=== PATIENT | male | born 1970 | race African-American/Black ===

== ENCOUNTER 2017-10-09 19:47 | Emergency (ER) | payer OTHER ==
[~2017-10-09] VITALS: Ht 180.3 cm; Wt 115.8 kg
[2017-10-09 19:50] VITALS: BP 141/113
[2017-10-09] MEDS ORDERED: NACL 0.9% 1,000 ML IV SCH (21:21)
[2017-10-09] MEDS ORDERED: MORPHINE SULFATE 4 MG/ML SYR IVP ONE (21:25)
[2017-10-09] MEDS ORDERED: ONDANSETRON 4 MG/2 ML VIAL IVP ONE (21:25)
[2017-10-09 21:46] LABS: BASOPHILS # (AUTO) 0.1 K/uL (0.00-0.22); BASOPHILS % (AUTO) 0.7 % (0.0-2.0); EOSINOPHILS # (AUTO) 0.3 K/uL (0-0.4); EOSINOPHILS % (AUTO) 3.1 % (0.0-4.0); HEMATOCRIT 43.4 % (36-52); HEMOGLOBIN 14.3 g/dL (12.0-18.0); LYMPHOCYTES # (AUTO) 2.1 K/uL (2.0-11.5); LYMPHOCYTES % (AUTO) 21.7 % (20.5-51.1); MEAN CORPUSCULAR HEMOGLOBIN 27 pg (27-31); MEAN CORPUSCULAR HGB CONC 33 g/dL (33-37); MEAN CORPUSCULAR VOLUME 80.6 fL (80-94); MONOCYTES # (AUTO) 0.7 K/uL (0.8-1.0); MONOCYTES % (AUTO) 6.9 % (1.7-9.3); NEUTROPHILS # (AUTO) 6.4 K/uL (1.8-7.7); NEUTROPHILS % (AUTO) 67.6 % (42.2-75.2); PLATELET COUNT (AUTO) 322 K/uL (140-450); RED BLOOD CELL COUNT(AUTO) 5.38 MIL/uL (4.20-6.10); RED CELL DISTRIBUTION WIDTH 15.3 % (11.6-13.7); WHITE BLOOD COUNT (AUTO) 9.5 K/uL (4.8-10.8)
[2017-10-09 21:51] LABS: APPEARANCE,URINE CLEAR (CLEAR); BILIRUBIN,URINE NEGATIVE (NEGATIVE); BLOOD, URINE 3+ (NEGATIVE); COLOR,URINE YELLOW (YELLOW); LEUKOCYTE ESTERASE ,URINE NEGATIVE (NEGATIVE); NITRITE, URINE NEGATIVE (NEGATIVE); UGLUCOSE NEGATIVE (NEGATIVE)
[2017-10-09 22:03] LABS: ALBUMIN 3.3 g/dL (3.4-5.0); ANION GAP 10.5 (8-16); CARBON DIOXIDE 28.3 mmol/L (21-32); CREATININE 1.1 mg/dL (0.7-1.3); POTASSIUM 3.8 mmol/L (3.5-5.1); TOTAL BILIRUBIN 0.3 mg/dL (0.0-1.0)
[2017-10-09 22:37] LABS: RBC,URINE 11-20 (MOD) /HPF (0-5); WBC,URINE 80-100 /HPF (0-5)
[2017-10-09] MEDS ORDERED: cefTRIAXone 1,000 MG VIAL ONE (23:03)
[2017-10-10 00:43] VITALS: BP 133/86
== END 2017-10-10 00:43 | disposition home or self-care (01) ==
LOC: MED 19:47
DX: R10.9 Unspecified abdominal pain (principal); I10 Essential (primary) hypertension
CPT/HCPCS: 36415; 71260; 74177; 80053; 81001; 83690; 85025; 87086; 96361; 96365; 96375; 99285; J0696; J2270; J2405; J7030

== ENCOUNTER 2017-10-14 12:03 | Emergency (ER) | payer OTHER ==
[~2017-10-14] VITALS: Ht 180.3 cm; Wt 111.1 kg
[2017-10-14 12:25] VITALS: BP 130/56
--- NOTE | 2017-10-14 12:43 | NUR ---
PT AMBULATED TO BED 2
--- NOTE | 2017-10-14 13:00 | NUR ---
47m bib self with c/o 10/10 constant sharp left flank x 2 weeks with n/v and constipation. Patient denies any urinary complaints or fevers. Tenderness to left flank area. Patient is anxious and restlessness. Pt is aox4 with steady gait. RR are even and unlabored. Patient changed into gown. VSS. All needs met at this time. Will continue to monitor.
[2017-10-14 14:02] LABS: BASOPHILS % (AUTO) 0.5 % (0.0-2.0); EOSINOPHILS # (AUTO) 0.2 K/uL (0-0.4); EOSINOPHILS % (AUTO) 2.2 % (0.0-4.0); HEMATOCRIT 44.6 % (36-52); HEMOGLOBIN 15.1 g/dL (12.0-18.0); LYMPHOCYTES % (AUTO) 25.5 % (20.5-51.1); MEAN CORPUSCULAR HEMOGLOBIN 27 pg (27-31); MEAN CORPUSCULAR HGB CONC 34 g/dL (33-37); MEAN CORPUSCULAR VOLUME 79.5 fL (80-94); MONOCYTES # (AUTO) 0.4 K/uL (0.8-1.0); MONOCYTES % (AUTO) 5.4 % (1.7-9.3); NEUTROPHILS # (AUTO) 5.1 K/uL (1.8-7.7); NEUTROPHILS % (AUTO) 66.4 % (42.2-75.2); PLATELET COUNT (AUTO) 329 K/uL (140-450); RED BLOOD CELL COUNT(AUTO) 5.61 MIL/uL (4.20-6.10); RED CELL DISTRIBUTION WIDTH 15.4 % (11.6-13.7); WHITE BLOOD COUNT (AUTO) 7.7 K/uL (4.8-10.8)
[2017-10-14] MEDS ORDERED: KETOROLAC 60 MG/2 ML VIAL IM ONE (14:05)
[2017-10-14 14:20] LABS: APPEARANCE,URINE CLEAR (CLEAR); BILIRUBIN,URINE NEGATIVE (NEGATIVE); BLOOD, URINE 1+ (NEGATIVE); COLOR,URINE YELLOW (YELLOW); LEUKOCYTE ESTERASE ,URINE TRACE (NEGATIVE); NITRITE, URINE NEGATIVE (NEGATIVE); UGLUCOSE NEGATIVE (NEGATIVE)
[2017-10-14 14:35] LABS: RBC,URINE 0-5 (RARE) /HPF (0-5); WBC,URINE 6-15 (FEW) /HPF (0-5)
--- NOTE | 2017-10-14 14:57 | NUR ---
PATIENT WITH NO COMPLAINTS. ALL NEEDS MET AT THIS TIME. PATIENT PROVIDED WITH WARM BLANKET. VSS. WILL CONTINUE TO MONITOR.
[2017-10-14 15:22] LABS: ALBUMIN 3.6 g/dL (3.4-5.0); ANION GAP 11.4 (8-16); CARBON DIOXIDE 26.6 mmol/L (21-32); CREATININE 1.2 mg/dL (0.7-1.3); TOTAL BILIRUBIN 0.5 mg/dL (0.0-1.0)
[2017-10-14 16:15] VITALS: BP 139/95
== END 2017-10-14 16:15 | disposition home or self-care (01) ==
LOC: MED 12:03
DX: R07.9 Chest pain, unspecified (principal); N39.0 Urinary tract infection, site not specified; R11.2 Nausea with vomiting, unspecified; J45.909 Unspecified asthma, uncomplicated; E11.9 Type 2 diabetes mellitus without complications; F17.210 Nicotine dependence, cigarettes, uncomplicated; Z98.890 Other specified postprocedural states
CPT/HCPCS: 36415; 71101; 80053; 81001; 85025; 87086; 96372; 99285; J1885

== ENCOUNTER 2018-04-01 11:14 | Emergency (ER) | payer MEDICAID, OTHER ==
[~2018-04-01] VITALS: Ht 180.3 cm; Wt 123.4 kg
[2018-04-01 11:20] VITALS: BP 135/77
[2018-04-01] MEDS ORDERED: DEXAMETHASONE 10 MG/ML VIAL IM ONE (11:55)
[2018-04-01] MEDS ORDERED: KETOROLAC 30 MG/ML VIAL IM ONE (11:55)
[2018-04-01 13:23] VITALS: BP 129/68
== END 2018-04-01 13:23 | disposition home or self-care (01) ==
LOC: MED 11:14
DX: G89.29 Other chronic pain (principal); M54.40 Lumbago with sciatica, unspecified side
CPT/HCPCS: 72100; 96372; 99284; J1100; J1885

== ENCOUNTER 2019-07-19 10:43 | Inpatient (IN) | payer MEDICAID ==
[~2019-07-19] VITALS: Ht 180.3 cm; Wt 120.7 kg
[2019-07-19 11:08] VITALS: BP 121/88
[2019-07-19] MEDS ORDERED: ALBUTEROL SULFATE/IPRATROPIU 3 ML SOL IH ONE (11:15)
--- NOTE | 2019-07-19 11:41 | NUR ---
PT TAKEN TO RAD VIA W/C
--- NOTE | 2019-07-19 11:47 | NUR ---
PT TAKEN TO ER BED 2 VIA W/C
--- NOTE | 2019-07-19 11:50 | NUR ---
49/M C/O SEIZURE--WITNESSED BY FAMILY MEMBER----PT REMEMBERS WALKING OUT OF HIS HOME THEN GETTING OFF THE GROUND---SEEN SHAKING ON THE GROUND PER PT. 3RD SEIZURE EVER--HAS NOT BEEN SEEN FOR THIS BEFORE DENIES RECENT INJURY/TRAUMA, DRUGS, ETOH ABUSE ALSO ADDS COUGH WITH MODERATE CONGESTION , SOB, CAPPS X 4 DAYS HX--HTN, SCHIZOEFFECTIVE, DEPRESSION. PATIENT STATES PAIN OF 5/10 AT THIS TIME. PATIENT POSITIONED FOR COMFORT; HOB ELEVATED; BEDRAILS UP X2; BED DOWN. ER MD MADE AWARE OF PT STATUS.
--- NOTE | 2019-07-19 12:23 | NUR ---
PT TAKEN TO CT VIA W/C
--- NOTE | 2019-07-19 12:44 | NUR ---
PT STATED HE USED METH 5 DAYS AGO.DRANK BEER LAST NIGHT.
--- NOTE | 2019-07-19 13:01 | NUR ---
pt can't provide urine at this time.
--- NOTE | 2019-07-19 13:09 | NUR ---
PT URENATED 400 CC.
[2019-07-19 13:11] LABS: BASOPHILS % (AUTO) 0.9 % (0.0-2.0); EOSINOPHILS # (AUTO) 0.2 K/uL (0-0.4); EOSINOPHILS % (AUTO) 3.7 % (0.0-4.0); HEMATOCRIT 44.5 % (36-52); HEMOGLOBIN 15.1 g/dL (12.0-18.0); LYMPHOCYTES # (AUTO) 1.7 K/uL (2.0-11.5); LYMPHOCYTES % (AUTO) 29.7 % (20.5-51.1); MEAN CORPUSCULAR HEMOGLOBIN 28 pg (27-31); MEAN CORPUSCULAR HGB CONC 34 g/dL (33-37); MEAN CORPUSCULAR VOLUME 81.5 fL (80-94); MONOCYTES # (AUTO) 0.4 K/uL (0.8-1.0); MONOCYTES % (AUTO) 7.3 % (1.7-9.3); NEUTROPHILS # (AUTO) 3.4 K/uL (1.8-7.7); NEUTROPHILS % (AUTO) 58.4 % (42.2-75.2); PLATELET COUNT (AUTO) 293 K/uL (140-450); RED BLOOD CELL COUNT(AUTO) 5.46 MIL/uL (4.20-6.10); RED CELL DISTRIBUTION WIDTH 15.5 % (11.6-13.7); WHITE BLOOD COUNT (AUTO) 5.8 K/uL (4.8-10.8)
[2019-07-19 13:42] LABS: ANION GAP 9.5 (8-16); CARBON DIOXIDE 31.1 mmol/L (21-32); CHLORIDE 102 mmol/L (98-107); CREATININE 1.4 mg/dL (0.6-1.3); GFR ARICAN-AMERICAN 70 mL/min (>90); GLUCOSE 90 mg/dL (74-106); POTASSIUM 4.6 mmol/L (3.5-5.1); SODIUM SERUM 138 mmol/L (136-145); UREA NITROGEN, BLOOD 18 mg/dL (7-18)
[2019-07-19 13:43] LABS: ALBUMIN 3.7 g/dL (3.4-5.0); ASPARTATE AMINOTRANSFERASE 26 U/L (15-37); MAGNESIUM 2.1 mg/dL (1.8-2.4); TOTAL BILIRUBIN 0.5 mg/dL (0.0-1.0)
[2019-07-19] MEDS ORDERED: LORazepam 2 MG/ML VIAL IVP ONE (13:55)
[2019-07-19 14:09] LABS: APPEARANCE,URINE CLEAR (CLEAR); BARBITURATE, URINE NEGATIVE ng/ml (NEG <=200); BENZODIAZEPINE, URINE NEGATIVE ng/mL (NEG <=200); BILIRUBIN,URINE NEGATIVE (NEGATIVE); BLOOD, URINE TRACE-I (NEGATIVE); CANNABINOID, URINE NEGATIVE ng/mL (NEG <=50); COCAINE, URINE NEGATIVE ng/mL (NEG <=300); COLOR,URINE YELLOW (YELLOW); LEUKOCYTE ESTERASE ,URINE TRACE (NEGATIVE); NITRITE, URINE NEGATIVE (NEGATIVE); OPIATE, URINE NEGATIVE ng/mL (NEG <=2000); PH,URINE 6.5 (5.0-9.0); PHENCYCLIDINE SCREEN,URINE NEGATIVE ng/mL (NEG <=25); UGLUCOSE NEGATIVE (NEGATIVE)
[2019-07-19 14:36] LABS: RBC,URINE 0-5 /HPF (0-5)
--- NOTE | 2019-07-19 15:11 | NUR ---
[facility] [phone]
[2019-07-19] MEDS ORDERED: HYDROcodone/APAP 7.5/325 MG 1 TAB PO PRN (17:10)
[2019-07-19] MEDS ORDERED: ACETAMINOPHEN 325 MG TAB PO PRN (17:10)
[2019-07-19] MEDS ORDERED: ONDANSETRON 4 MG/2 ML VIAL IVP PRN (17:10)
[2019-07-19 17:52] VITALS: BP 101/73
--- NOTE | 2019-07-19 17:52 | NUR ---
Patient will be admitted to care of DR DIAZ. Admited to TELE. Will go to room 104A. Belongings list completed. Report to SERG BUSBY.
--- NOTE | 2019-07-19 17:52 | NUR ---
Note poonam in ED - 07/19/19 at 1753 by [facility] Patient will be admitted to care of DR DIAZ. Admited to TELE. Will go to room 104A. Belongings list completed. Report to MARY BUSBY.
--- NOTE | 2019-07-19 17:52 | NUR ---
RECEIVED BEDSIDE REPORT FROM ED NURSE. PT RESTING IN BED. ABLE TO MAKE NEEDS KNOWN. RESPIRATIONS EVEN AND UNLABORED WITH NO SOB OR RESPIRATORY DISTRESS. SKIN WARM AND DRY TO TOUCH. IV SITE IN LAC 20G IS CLEAN, DRY, AND INTACT. SAFETY MEASURES IN PLACE. WILL CONTINUE TO MONITOR.
[2019-07-19 18:24] LABS: FREE T4 (FREE THYROXINE) 0.98 ng/dL (0.76-1.46); THYROID STIMULATING HORMONE 1.75 uIU/mL (0.34-3.74)
[2019-07-19 18:30] LABS: PROTHROMBIN TIME 9.7 secs (10.8-13.4)
[2019-07-19] MEDS: NACL 0.9% 1,000 ML IV SCH (18:37)
--- NOTE | 2019-07-19 18:37 | NUR ---
ADMINISTERED SCHED IVF PRESCRIBED PER MD ORDER. PT TOLERATED WELL. MEDICATION EDUCATION PERFORMED. PT VERBALIZED UNDERSTANDING. SAFETY MEASURES IN PLACE. WILL CONTINUE TO MONITOR.
[2019-07-19] MEDS ORDERED: LORazepam 2 MG/ML VIAL IM/IVP PRN (18:45)
--- NOTE | 2019-07-19 19:15 | NUR ---
ENDORSED TO NIGHTSHIFT NURSE AT BEDSIDE. PT RESTING IN BED. ABLE TO MAKE NEEDS KNOWN. RESPIRATIONS EVEN AND UNLABORED WITH NO SOB OR RESPIRATORY DISTRESS. SKIN WARM AND DRY TO TOUCH. SAFETY MEASURES IN PLACE. PT IS STABLE
--- NOTE | 2019-07-19 19:16 | NUR ---
RECEIVED BEDSIDE REPORT FROM AM SHIFT NURSE. PATIENT IS LYING IN BED, AWAKE AND ALERT. FAMILY MEMBERS AT BEDSIDE. NO SOB OR DISTRESS NOTED. ON ROOM AIR. PATIENT NOTED WITH LEFT AC 20 GAUGE, PATENT AND INTACT. SKIN IS INTACT. PATIENT IS AMBULATORY. BED IN LOW, SAFETY MEASURES IN PLACE. INITIAL ASSESSMENT DONE. CALL LIGHT PLACED WITHIN PATIENT REACH. WILL CONTINUE TO MONITOR PATIENT.
[2019-07-19] MEDS ORDERED: ALBUTEROL SULFATE/IPRATROPIU 3 ML SOL IH PRN (19:30)
[2019-07-19] MEDS ORDERED: GABA300C PO (19:56)
[2019-07-19] MEDS ORDERED: FLONAS NS (19:56)
[2019-07-19] MEDS ORDERED: AMLO10TA PO (19:56)
[2019-07-19] MEDS ORDERED: HYDR-5092 PO (19:56)
[2019-07-19] MEDS ORDERED: BISO10TA PO (19:56)
[2019-07-19] MEDS ORDERED: CETI-120 PO (19:56)
[2019-07-19 20:00] VITALS: BP 111/69
[2019-07-19] MEDS ORDERED: HYDROcodone/APAP 10/325 MG 1 TAB TAB PO PRN (20:55)
[2019-07-19] MEDS: DOCUSATE SODIUM 100 MG GELCAP PO SCH (21:01)
[2019-07-19] MEDS ORDERED: cefTRIAXone 1,000 MG VIAL ONE (22:28)
--- NOTE | 2019-07-19 22:50 | NUR ---
PATIENT NOW ON C-PAP. TOLERATING WELL. WILL CONTINUE TO MONITOR PATIENT.
[2019-07-20] VITALS: BP 126/76
--- NOTE | 2019-07-20 00:01 | NUR ---
VITALS TAKEN AT THIS TIME. NO SOB OR DISTRESS NOTED. CALL LIGHT WITHIN PATIENT REACH. WILL CONTINUE TO MONITOR PATIENT.
--- NOTE | 2019-07-20 00:44 | NUR ---
PATIENT WANTS TO BE OFF C-PAP AT THIS TIME. PATIENT WANTS TO STAY UP AND WATCH TV. RT MADE AWARE. C-PAP ON STANDBY.
--- NOTE | 2019-07-20 01:50 | NUR ---
PATIENT PUT BACK ON C-PAP AT THIS TIME. TOLERATING WELL. WILL CONTINUE TO MONITOR PATIENT.
[2019-07-20 04:00] VITALS: BP 128/57
--- NOTE | 2019-07-20 04:01 | NUR ---
VITALS TAKEN AT THIS TIME. PATIENT ON C-PAP. NO DISTRESS NOTED. WILL CONTINUE TO MONITOR PATIENT.
[2019-07-20] MEDS: NACL 0.9% 1,000 ML IV SCH ×2 (06:12→15:54)
--- NOTE | 2019-07-20 06:23 | NUR ---
PATIENT IN STABLE CONDITION. CALL LIGHT WITHIN PATIENT REACH. WILL ENDORSE TO AM SHIFT NURSE FOR CONTINUITY OF CARE.
--- NOTE | 2019-07-20 07:24 | NUR ---
SHIFT REPORT RECEIVED FROM PROPRIETARY TRADER NURSE. PT IS IN BED AWAKE AND RESPONSIVE. NO DISTRESS NOTED. WILL CONTINUE TO MONITOR. CALL LIGHT IN REACH.
[2019-07-20 07:49] LABS: BASOPHILS % (AUTO) 0.3 % (0.0-2.0); EOSINOPHILS # (AUTO) 0.2 K/uL (0-0.4); EOSINOPHILS % (AUTO) 3.1 % (0.0-4.0); HEMATOCRIT 43.2 % (36-52); LYMPHOCYTES # (AUTO) 1.6 K/uL (2.0-11.5); LYMPHOCYTES % (AUTO) 27.2 % (20.5-51.1); MEAN CORPUSCULAR HEMOGLOBIN 28 pg (27-31); MEAN CORPUSCULAR HGB CONC 35 g/dL (33-37); MONOCYTES # (AUTO) 0.4 K/uL (0.8-1.0); MONOCYTES % (AUTO) 7.1 % (1.7-9.3); NEUTROPHILS # (AUTO) 3.6 K/uL (1.8-7.7); NEUTROPHILS % (AUTO) 62.3 % (42.2-75.2); PLATELET COUNT (AUTO) 273 K/uL (140-450); RED BLOOD CELL COUNT(AUTO) 5.33 MIL/uL (4.20-6.10); RED CELL DISTRIBUTION WIDTH 15.1 % (11.6-13.7); WHITE BLOOD COUNT (AUTO) 5.9 K/uL (4.8-10.8)
[2019-07-20 08:00] VITALS: BP 117/64
[2019-07-20 08:12] LABS: ANION GAP 9.7 (8-16); CARBON DIOXIDE 31.5 mmol/L (21-32); CREATININE 1.4 mg/dL (0.6-1.3); POTASSIUM 4.2 mmol/L (3.5-5.1)
[2019-07-20] MEDS: LACTOBACILLUS RHAMNOSUS GG 1 EACH CAP PO SCH (08:16)
[2019-07-20] MEDS: GABAPENTIN 300 MG CAP PO SCH ×3 (08:16→16:36)
[2019-07-20] MEDS: LORATADINE 10 MG TAB PO SCH (08:16)
[2019-07-20] MEDS: DOCUSATE SODIUM 100 MG GELCAP PO SCH ×2 (08:16→20:15)
[2019-07-20] MEDS: NICOTINE TRANSD SYS 7 MG/24 HR PATCH TD SCH (08:18)
--- NOTE | 2019-07-20 08:47 | NUR ---
PATIENT HAS BEEN SCREENED AND CATEGORIZED LOW NUTRITION RISK. PATIENT WILL BE SEEN WITHIN 7 DAYS OF ADMISSION. 07/26/[address]
[2019-07-20] MEDS: FLUTICASONE NASAL 50 MCG/ACTUATION 16 GM BTL NS SCH (08:48)
--- NOTE | 2019-07-20 09:30 | NUR ---
PT IS IN BED SLEEPING. HOWEVER PT IS RESPONSIVE WHEN CALLED. NO DISTRESS NOTED. NO COMPLAINS OF PAIN . WILL CONTINUE TO MONITOR. CALL LIGHT IN REACH.
[2019-07-20 10:39] LABS: CHOL/HDL RATIO 3.2 (1-4.5); MAGNESIUM 2.4 mg/dL (1.8-2.4); PHOSPHORUS 3.6 mg/dL (2.5-4.9)
[2019-07-20 12:00] VITALS: BP 113/59
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
--- NOTE | 2019-07-20 13:20 | NUR ---
PT IS SITTING IN BED AT THIS TIME. NO COMPLAINS OF PAIN. WILL CONTINUE TO MONITOR. CALL LIGHT IN REACH.
--- NOTE | 2019-07-20 15:00 | NUR ---
PT IS SLEEPING IN BED AT THIS TIME. PT SAYS HE WANTS TO SLEEP. NO DISTRESS NOTED. WILL CONTINUE TO MONITOR. CALL LIGHT IN REACH.
[2019-07-20] MEDS ORDERED: VALPROATE SODIUM 1,000 MG in NACL 0.9% 100 ML IV ONE (15:30)
[2019-07-20 16:00] VITALS: BP 129/90
--- NOTE | 2019-07-20 18:00 | NUR ---
PT IS SITTING IN BED AT THIS TIME. PT IS EATING DINNER. NO DISTRESS NOTED. WILL CONTINUE TO MONITOR. CALL LIGHT IN REACH.
--- NOTE | 2019-07-20 19:23 | NUR ---
SHIFT REPORT GIVEN TO DIGITAL PHOTO PRINTER NURSE. PT IS IN STABLE CONDITION. CALL LIGHT IN REACH.
--- NOTE | 2019-07-20 19:23 | NUR ---
RECIEVED PT AAOX4 , NID , IV SITE INTACT AND PATENT , NO COMPLAIN MADE AT THIS TIME . PLAN OF CARE DISCUSSED AND VERBALIZE UNDERSTANDING .ON SAFETY / FALL PRECAUTION PROTOCOL - CALL LIGHT WITHIN REACH .WILL CONT. TO MONITOR.
[2019-07-20 20:00] VITALS: BP 124/78
[2019-07-20] MEDS: DIVALPROEX 500 MG TABEC PO SCH (20:16)
--- NOTE | 2019-07-20 22:00 | NUR ---
MADE ROUNDS , NO COMPLAIN MADE - ON SHOP LABORER.WILL CONT. TO MONITOR. CALL LIGHT WITHIN REACH
--- NOTE | 2019-07-20 23:21 | NUR ---
PT REFUSED TO WEAR CPAP FOR SLEEP APNEA FOR NOC. RN AWARE. NO SOB OR DISTRESS NOTED. CPAP IN ROOM STANDBY.
--- NOTE | 2019-07-21 | NUR ---
MADE ROUNDS , NO S/S OF ACUTE DISTRESS NOTED , CALL LIGHT WITHIN REACH.
[2019-07-21] MEDS: NACL 0.9% 1,000 ML IV SCH (01:46)
--- NOTE | 2019-07-21 02:00 | NUR ---
SLEEPING - CHEST RISE AND FALL EQUALLY , CALL LIGHT WITHIN REACH .
[2019-07-21 02:56] VITALS: BP 122/65
[2019-07-21 04:00] VITALS: BP 122/66
[2019-07-21 06:59] LABS: BASOPHILS % (AUTO) 0.6 % (0.0-2.0); EOSINOPHILS # (AUTO) 0.2 K/uL (0-0.4); EOSINOPHILS % (AUTO) 4.2 % (0.0-4.0); HEMATOCRIT 43.4 % (36-52); HEMOGLOBIN 14.5 g/dL (12.0-18.0); LYMPHOCYTES # (AUTO) 1.9 K/uL (2.0-11.5); LYMPHOCYTES % (AUTO) 35.3 % (20.5-51.1); MEAN CORPUSCULAR HEMOGLOBIN 27 pg (27-31); MEAN CORPUSCULAR HGB CONC 34 g/dL (33-37); MEAN CORPUSCULAR VOLUME 81.8 fL (80-94); MONOCYTES # (AUTO) 0.4 K/uL (0.8-1.0); MONOCYTES % (AUTO) 8.1 % (1.7-9.3); NEUTROPHILS # (AUTO) 2.7 K/uL (1.8-7.7); NEUTROPHILS % (AUTO) 51.8 % (42.2-75.2); PLATELET COUNT (AUTO) 280 K/uL (140-450); WHITE BLOOD COUNT (AUTO) 5.3 K/uL (4.8-10.8)
[2019-07-21 07:19] LABS: ANION GAP 6.7 (8-16); CARBON DIOXIDE 31.4 mmol/L (21-32); CREATININE 1.2 mg/dL (0.6-1.3); POTASSIUM 4.1 mmol/L (3.5-5.1)
--- NOTE | 2019-07-21 07:20 | NUR ---
RECEIVED REPORT FROM NIGHT NURSE, PT STABLE, PT IS ASLEEP, RESPIRATIONS ARE EVEN AND UNLABORED ON ROOM AIR, PT HAS R WRIST 22G, INFUSING NORMAL SALINE AT 100ML/H, PER NIGHT NURSE PT REFUSING TO WEAR YELLOW GOWN, SAFETY MEASURES IN PLACE, UPDATED WHITE BOARD, WILL CONTINUE TO MONITOR, CALL LIGHT WITHIN REACH.
[2019-07-21 07:31] LABS: MAGNESIUM 2.3 mg/dL (1.8-2.4); PHOSPHORUS 2.7 mg/dL (2.5-4.9)
[2019-07-21 08:00] VITALS: BP 120/76
[2019-07-21] MEDS: LACTOBACILLUS RHAMNOSUS GG 1 EACH CAP PO SCH (08:41)
[2019-07-21] MEDS: GABAPENTIN 300 MG CAP PO SCH (08:41)
[2019-07-21] MEDS: FLUTICASONE NASAL 50 MCG/ACTUATION 16 GM BTL NS SCH (08:41)
[2019-07-21] MEDS: LORATADINE 10 MG TAB PO SCH (08:42)
[2019-07-21] MEDS: DOCUSATE SODIUM 100 MG GELCAP PO SCH (08:42)
[2019-07-21] MEDS: DIVALPROEX 500 MG TABEC PO SCH (08:43)
[2019-07-21] MEDS: NICOTINE TRANSD SYS 7 MG/24 HR PATCH TD SCH (08:44)
--- NOTE | 2019-07-21 08:51 | NUR ---
ADMINISTERED ORDERED MEDICATION, MEDICATION SIDE EFFECT GIVEN, PT REFUSED STOOL SOFTENER, PT VERBALIZED UNDERSTANDING, PT STABLE, CALL LIGHT WITHIN REACH.
[2019-07-21] MEDS ORDERED: DIVA500E2 PO (09:09)
--- NOTE | 2019-07-21 10:45 | NUR ---
PT DISCHARGED HOME, PT STABLE, IV TAKEN OUT, IV INTACT, PT WALKED TO FRONT LOBBY WITH STEADY GAIT,
--- NOTE | 2019-07-21 15:31 | NUR ---
Painter Spray Note: SW attempted to conduct assessment. Patient discharged.
== END 2019-07-21 10:45 | disposition home or self-care (01) | DRG 48 ==
LOC: MED 10:43 → MTU 17:07
PROVIDERS: ADMIT General Practice; ATTEND General Practice
PROC: 5A09357 Assistance with Respiratory Ventilation, Less than 24 Consecutive Hours, Continuous Positive Airway Pressure (ICD-10-PCS; 2019-07-18)
PROC: 4A00X4Z Measurement of Central Nervous Electrical Activity, External Approach (ICD-10-PCS; principal; 2019-07-20)
DX: G90.8 Other disorders of autonomic nervous system (principal); N17.0 Acute kidney failure with tubular necrosis; E66.01 Morbid (severe) obesity due to excess calories; M54.9 Dorsalgia, unspecified; G89.29 Other chronic pain; F17.210 Nicotine dependence, cigarettes, uncomplicated; I10 Essential (primary) hypertension; J45.909 Unspecified asthma, uncomplicated; F15.10 Other stimulant abuse, uncomplicated; Z71.51 Drug abuse counseling and surveillance of drug abuser; Z68.37 Body mass index [BMI] 37.0-37.9, adult; Z71.3 Dietary counseling and surveillance; Z93.3 Colostomy status; Z83.3 Family history of diabetes mellitus; Z82.49 Family history of ischemic heart disease and other diseases of the circulatory system; Z71.6 Tobacco abuse counseling
CPT/HCPCS: 36415; 70450; 71045; 72100; 76770; 80048; 80053; 80305; 81001; 82150; 82550; 83036; 83605; 83690; 83735; 83880; 84100; 84439; 84443; 84484; 85025; 85610; 85730; 87081; 87086; 93005; 93880; 94640; 94660; 96374; 97116; 97161-GP; 99285; G0482; J0696; J1644; J2060; J3490; J7030; J7060; Q0092